=== PATIENT | female | born 1985 | race African-American/Black ===

== ENCOUNTER → 2024-03-25 13:50 | Outpatient (REF) | payer OTHER, SELFPAY ==
[2024-03-25 10:00] LABS: % Basophils 0.2 % (0-2); % Eosinophils 2.1 % (0-6); % Lymphocytes 34.2 % (20.5-51.1); % Monocytes 9.1 % (1.7-9.3); % Neutrophils 54.4 % (42.2-75.2); Absolute Eosinophils 0.1 10^3/uL (0-0.7); Absolute Lymphocytes 1.7 10^3/uL (1.2-3.4); Absolute Monocytes 0.4 10^3/uL (0.1-0.6); Absolute Neutrophils 2.6 10^3/uL (1.4-6.5); Hematocrit 31.4 % (37.0-47.0); Hemoglobin 10.4 g/dL (12.0-16.0); Mean Corp Hgb Conc. 33.1 g/dL (33.0-37.0); Mean Corpuscular Volume 63.4 fL (81.0-99.0); Nucleated Red Blood Cells % 0 %; Platelet Count 266 10^3/uL (130-400); Red Blood Cell Count 4.95 10^6/uL (4.20-5.40); Red Cell Dist. Width 14.8 % (11.5-14.5); White Blood Cell Count 4.9 10^3/uL (4.8-10.8)
== END ==
LOC: OIDL 13:50
PROVIDERS: ATTENDING PHYSICIAN Nurse Practitioner Primary Care
DX: D50.0 Iron deficiency anemia secondary to blood loss (chronic) (principal)
CPT/HCPCS: 85025

== ENCOUNTER 2024-09-06 15:25 | Emergency (ER) | payer OTHER, SELFPAY ==
[2024-09-06 15:38] VITALS: BP 125/72
[2024-09-06 16:09] LABS: % Basophils 0.2 % (0-2); % Immature Granulocytes 0.2 % (0-0.5); % Lymphocytes 31.5 % (20.5-51.1); % Monocytes 6.7 % (1.7-9.3); % Neutrophils 59.4 % (42.2-75.2); Absolute Eosinophils 0.1 10^3/uL (0-0.7); Absolute Lymphocytes 1.9 10^3/uL (1.2-3.4); Absolute Monocytes 0.4 10^3/uL (0.1-0.6); Absolute Neutrophils 3.5 10^3/uL (1.4-6.5); Hematocrit 29.8 % (37.0-47.0); Mean Corp Hgb Conc. 33.6 g/dL (33.0-37.0); Mean Corpuscular Hgb 20.6 pg (27.0-31.0); Mean Corpuscular Volume 61.4 fL (81.0-99.0); Nucleated Red Blood Cells % 0 %; Platelet Count 279 10^3/uL (130-400); Red Blood Cell Count 4.85 10^6/uL (4.20-5.40); Red Cell Dist. Width 15.9 % (11.5-14.5); White Blood Cell Count 5.9 10^3/uL (4.8-10.8)
[2024-09-06 16:19] LABS: ALT (SGPT) 20 U/L (0-35); AST (SGOT) 24 U/L (14-36); Albumin 3.8 g/dl (3.5-5.0); Alkaline Phosphatase 62 U/L (38-126); Blood Urea Nitrogen 7 mg/dl (7-17); Calcium 8.8 mg/dl (8.4-10.2); Carbon Dioxide 24 mmol/L (22-30); Chloride 105 mmol/L (98-107); Glucose 200 mg/dl (70-99); HCG, Serum Qualitative Screen Negative; Potassium 4.6 mmol/L (3.5-5.1); Sodium 138 mmol/L (135-145); Total Bilirubin 0.5 mg/dl (0.2-1.3); Total Protein 6.5 g/dl (6.3-8.2); eGFR > 60.00
[2024-09-06 16:29] LABS: COVID-19 Antigen Negative (Negative)
[2024-09-06 17:41] VITALS: BMI 29.6
--- NOTE | 2024-09-06 17:42 | EDRN ---
Pt states that she has had a headache since March and saw her neurologist and was placed on sumatriptin. Pt arrives for a headache for 4 days w/some congestion and nausea and sore throat. Pt has pain across her forehead. Pt states her glucose
yesterday was 310 and today 145 but usually runs 65. Pain in her head 5/10 and throat 3/10. Pt is sensitive to light and sound.
[2024-09-06 17:45] VITALS: BP 106/63
--- NOTE | 2024-09-06 17:50 | EDRN ---
Pt OOB to BR.
--- NOTE | 2024-09-06 18:04 | ED.GENMED ---
History of Present Illness
General
Chief Complaint: Headache
Source: patient
Exam Limitations: none
Time Seen by Provider: 09/06/24 17:56
Nursing documentation reviewed up to this point in time: agreed with
History of Present Illness
History of Present Illness:
39-year-old female with history of NIDDM, seizure disorder, migraines followed by [facility], states she is having one of her typical migraines they do not usually last this long, this is her third day of her migraine. She took sumatriptan
earlier today with no relief. She has had nausea and vomiting. She denies change in vision, denies any recent head injury.
Past History
Past History
ED Past Medical History: NIDDM and Other (Migraines)
ED Past Surgical History: Appendectomy, Gynecological and Other (gastric bypass)
Social History
Tobacco: Non-smoker
Alcohol: None
Drug: None
Personal:
Living: with family
Employment: Employed (Home health care)
Family History
Family History: Negative Early CAD or Sudden
Review of Systems
Review of Systems
Allergies reviewed?: Yes
All Other Systems: ROS reviewed and negative except as documented in HPI and ROS
Constitutional: Denies fever
Respiratory: Denies trouble breathing
Cardiac: Denies chest pain
ABD/GI: Reports nausea and vomiting; Denies abdominal pain or diarrhea
: Denies dysuria, frequency or difficulty voiding
Musculoskeletal: Reports no symptoms
Skin: Reports no symptoms
Neurological: Reports headache; Denies dizzy, weakness or numbness
Phy Exam
Physical Exam
Physical Exam:
GENERAL: No acute distress. A&Ox3.
CONSTITUTIONAL: Afebrile.
EYES: PERRL, conjunctivae normal, + photophobia,
Neck: Supple
ENMT: moist mucus membranes, Pharynx nl
RESPIRATORY: Regular respirations, nonlabored, lungs clear.
CARDIOVASCULAR: Regular rate and rhythm, no murmurs, no rubs.
GI: Soft, nontender, normal BS
MUSCULOSKELETAL: Moves with ease. Well perfused.
SKIN: Warm, dry, normal
PSYCH: Normal mood and affect. Well kept, interactive and appropriate
NEUROLOGIC: Awake, alert and oriented. No focal neurological deficits
Course
Orders/Labs/Results
Orders:
Orders
09/06/24 15:42
Test Result ONCE
09/06/24 15:46
COVID-19 Antigen Urgent
Source: Nasal Swab
Complete Blood Count/With Diff Urgent
Comprehensive Metabolic Panel Urgent
HCG, Serum Qualitative Screen Urgent
09/06/24 18:03
Diphenhydramine [Benadryl] 50 mg IV NOW STA
Ketorolac [Toradol] 15 mg IV NOW STA
Prochlorperazine [Compazine] 10 mg IV NOW STA
09/06/24 18:05
Test Result ONCE
Abnormal Lab Results
09/06/24
15:46
Hgb 10.0 L g/dL
(12.0-16.0)
Hct 29.8 L %
(37.0-47.0)
MCV 61.4 L fL
(81.0-99.0)
MCH 20.6 L pg
(27.0-31.0)
RDW 15.9 H %
(11.5-14.5)
Glucose 200 H mg/dl
(70-99)
09/06/24 15:46
09/06/24 15:46
Vital Signs
Initial and Last Documented VS:
Initial Vital Signs
Temp Pulse BP Pulse Ox
98.2 F 72 125/72 100
09/06/24 15:38 09/06/24 15:38 09/06/24 15:38 09/06/24 15:38
Last Documented Vital Signs
Temp Pulse Resp BP Pulse Ox
98.2 F 52 14 113/72 100
09/06/24 15:38 09/06/24 19:45 09/06/24 19:45 09/06/24 21:00 09/06/24 19:45
MDM/Problems Addressed
Differential Diagnosis Includes:
migraine
MDM/Problems Addressed:
39-year-old female with history of NIDDM, seizure disorder, migraines followed by [facility], states she is having one of her typical migraines they do not usually last this long, this is her third day of her migraine. She took sumatriptan
earlier today with no relief. She has had nausea and vomiting. She denies change in vision, denies any recent head injury.
Neuro exam unremarkable
CBC with no clinically significant abnormality patient's baseline anemia
CMP unremarkable
hCG negative
COVID-negative
9:00 PM
In to reevaluate patient
She is groggy but states her headache is 'better.'
Will encourage fluids and activity
9:30 PM:
Patient states she is feeling 'much better.' She is on her cell phone. She has been out of bed and ambulating. She is drinking sabrina yuriy.
Stable for discharge
*Critical Care Note
Total Time (30-74mins, 75-104mins- exclusive of procedures): Not Applicable
ED Attending Note
-
Portions of this chart may have been created with voice recognition software.� Occasional wrong word or��sound alike� substitutions may have occurred due to the inherent limitations of voice recognition software.
Discharge Plan
Departure
Patient Disposition: Home (Routine Discharge)
Date of Disposition: 09/06/24
Time of Disposition: 21:20
Patient with high blood pressure during this ER visit?: No
Condition: Good
Discharge Problem:
Migraine
Instructions: Migraines (DC)
Prescriptions:
No Action
metformin 500 MG tablet
500 mg PO BID
Patient Comments:
unsure of dosage
glipizide [Glipizide XL] 5 MG tablet extended release 24hr
ferrous sulfate [Feosol] 325 MG tablet
325 mg PO DAILY
topiramate 100 MG tablet
100 mg PO BID
Patient Comments:
unsure of dosage
sitagliptin phosphate [Januvia] 50 MG tablet
50 mg PO DAILY
Patient Comments:
unsure of dosage
vit no.[id number] [ One Daily] 1 EACH tablet
1 ea PO DAILY
Referrals:
PO QUIGLEY DO [Family Provider] - As needed
Activity Restrictions/Additional Instructions:
As we discussed, your COVID test is negative.
Your blood work is consistent with your chronic anemia, your blood sugar was 200.
Interventions
Interventions:
*Risk Screen - Suicide Last Done: 09/06/24 15:41
*General Assessment Last Done: 09/06/24 17:47
*Neglect/Abuse Screening Last Done: 09/06/24 15:41
ED- Fall Risk Assessment Last Done: 09/06/24 17:48
*ED COVID-19 Vaccine History Last Done: 09/06/24 17:47
*Nursing Disposition Last Done: 09/06/24 21:28
ED- Neurological Assessment Last Done: 09/06/24 17:48
Discharge Date and Time
Discharge Date/Time: 09/06/24 21:35
Print Language: BELARUSIAN
[2024-09-06 18:40] VITALS: BP 119/87
[2024-09-06] MEDS: BENADRYL 50 MG IV (18:45)
[2024-09-06] MEDS: TORADOL 15 MG IV (18:45)
[2024-09-06] MEDS: COMPAZINE 10 MG IV (18:47)
[2024-09-06 19:45] VITALS: BP 111/69
[2024-09-06 21:00] VITALS: BP 113/72
== END 2024-09-06 21:35 | disposition home or self-care (01) ==
LOC: EMR 15:25
PROVIDERS: Emergency Medicine; EMERGENCY PHYSICIAN Emergency Medicine; FAMILY PHYSICIAN Student in an Organized Health Care Education/Training Program
DX: G43.909 Migraine, unspecified, not intractable, without status migrainosus (principal); E11.9 Type 2 diabetes mellitus without complications; G40.909 Epilepsy, unspecified, not intractable, without status epilepticus; Z90.49 Acquired absence of other specified parts of digestive tract; Z98.84 Bariatric surgery status
CPT/HCPCS: 99283; 80053; 84703; 85025; 87811

== ENCOUNTER 2024-10-05 22:35 | Emergency (ER) | payer OTHER, SELFPAY ==
[2024-10-05 22:42] VITALS: BP 128/73
--- NOTE | 2024-10-05 23:21 | ED.GENMED ---
History of Present Illness
General
Chief Complaint: Eye Problems
Source: patient
Exam Limitations: none
Time Seen by Provider: 10/05/24 22:59
History of Present Illness
History of Present Illness:
This is a 39-year-old woman with history of [id number] diabetes, migraine headaches, seizure disorder, anemia who presents with right eye redness and irritation that began mildly last night. This morning she awoke with mild crusting to
her right eye. She wears extended wear contacts, generally wears them for a month and then replaces. She did take her right eye contact out today and has not replaced. She continues with right eye irritation, redness, mild discomfort, mild
foreign body sensation but no difficulty with vision, no headache, no blurred vision, no significant tearing, no photophobia. No history of similar episodes in the past.
No close contacts with similar symptoms.
Past History
Past History
ED Past Medical History: NIDDM, Seizures, Psychiatric and Other (Migraines)
ED Past Surgical History: Appendectomy, , Gynecological and Other (gastric bypass)
Social History
Tobacco: Non-smoker
Alcohol: None
Drug: None
Personal:
Living: with family
Employment: Employed (Home health care)
Family History
Family History: Negative Early CAD or Sudden
Phy Exam
Physical Exam
Physical Exam:
GENERAL: 39-year-old woman appears her stated age, bright and alert, pleasant, appears in no acute distress.
EYE: pupils equal and reactive. Extraocular muscles intact. There is mild conjunctival injection right eye without chemosis. No tearing. Right eye examined with fluorescein stain and Lo lamp. There is is a minute abrasion inferior edge of
the right cornea. No evidence of ulceration. No foreign body. Anterior chamber clear. Visual acuity grossly intact. Anicteric
NECK: Supple, nontender, no meningismus, no significant adenopathy.
ENT: oral mucosa is moist. No rhinorrhea.
LUNGS: Respirations are easy and nonlabored.
NEUROLOGICAL: Alert and oriented x3, no focal neuro deficits. Gait is trevizo and steady.
SKIN: Warm and dry, normal color, skin intact. No rash.
MUSCULOSKELETAL: Full range of motion. No peripheral edema.
PSYCH: Normal and appropriate interaction.
Course
Orders/Labs/Results
Orders:
Orders
10/05/24 23:19
Gentamicin [Genoptic 0.3% Eye Drops] See Dose Instructions OPHTH NOW STA
Vital Signs
Initial and Last Documented VS:
Initial Vital Signs
Temp Pulse Resp BP Pulse Ox
98 F 63 16 128/73 100
10/05/24 22:42 10/05/24 22:42 10/05/24 22:42 10/05/24 22:42 10/05/24 22:42
Last Documented Vital Signs
Temp Pulse Resp BP Pulse Ox
98 F 63 16 128/73 100
10/05/24 22:42 10/05/24 22:42 10/05/24 22:42 10/05/24 22:42 10/05/24 22:42
MDM/Problems Addressed
Differential Diagnosis Includes:
Concern for focal mild conjunctivitis right eye and exam notable for a tiny corneal abrasion inferior aspect of the right eye. There is no evidence of ulceration. No foreign body.
Will treat small corneal abrasion as well as mild conjunctival injection/conjunctivitis with a course of gentamicin ophthalmic drops.
Recommend she avoid contact use in right eye until eye is healed and gentamicin drops therapy has been completed.
Recommend follow-up with ophthalmology for recheck; prompt follow-up if no improvement after 2 to 3 days.
Patient is up-to-date with Tdap.
Chronic conditions affecting care: DM
*Pulse Oximetry
Patient hypoxic: no
*Critical Care Note
Total Time (30-74mins, 75-104mins- exclusive of procedures): Not Applicable
ED Attending Note
-
Portions of this chart may have been created with voice recognition software.� Occasional wrong word or��sound alike� substitutions may have occurred due to the inherent limitations of voice recognition software.
Discharge Plan
Departure
Patient Disposition: Home (Routine Discharge)
Date of Disposition: 10/05/24
Time of Disposition: 23:21
Patient with high blood pressure during this ER visit?: No
Condition: Good
Discharge Problem:
Corneal abrasion of right eye due to contact lens
Instructions: Corneal Abrasion (DC), How to Use Eye Drops
Prescriptions:
New
gentamicin 0.3 % drops
1 drp ophthalmic (eye) QID Qty: 5 0RF
No Action
metformin 500 MG tablet
500 mg PO BID
Patient Comments:
unsure of dosage
glipizide [Glipizide XL] 5 MG tablet extended release 24hr
ferrous sulfate [Feosol] 325 MG tablet
325 mg PO DAILY
topiramate 100 MG tablet
100 mg PO BID
Patient Comments:
unsure of dosage
sitagliptin phosphate [Januvia] 50 MG tablet
50 mg PO DAILY
Patient Comments:
unsure of dosage
vit no.[id number] [ One Daily] 1 EACH tablet
1 ea PO DAILY
Referrals:
Dwight Anderson DO [Family Provider] -
Cierra Saab MD [Active] - Call in 1-3 days for appt
Activity Restrictions/Additional Instructions:
Use gentamicin eyedrops, 1 to 2 drops in the right eye 4 times a day over the next 5 to 7 days or until eye feels completely better, then discontinue 1 day after that.
Refrain from putting contact in right eye until he is healed with no further irritation or redness. Then you can resume contact use.
If no improvement or worsening over the next 2 to 3 days, make an appointment with air bag buffer for further evaluation.
Interventions
Interventions:
*Risk Screen - Suicide Last Done: 10/05/24 22:42
*Neglect/Abuse Screening Last Done: 10/05/24 22:42
Discharge Date and Time
Print Language: SAMI
[2024-10-05] MEDS: GENOPTIC 0.3% EYE DROPS 1 DROP OPHTH (23:29)
== END 2024-10-05 23:35 | disposition home or self-care (01) ==
LOC: EMR 22:35
PROVIDERS: EMERGENCY PHYSICIAN Emergency Medicine; FAMILY PHYSICIAN Family Medicine
DX: H18.821 Corneal disorder due to contact lens, right eye (principal); E11.9 Type 2 diabetes mellitus without complications; G40.909 Epilepsy, unspecified, not intractable, without status epilepticus; D64.9 Anemia, unspecified; Z90.49 Acquired absence of other specified parts of digestive tract; Z98.84 Bariatric surgery status
CPT/HCPCS: 99282

== ENCOUNTER 2024-10-09 13:53 | Emergency (ER) | payer OTHER, SELFPAY ==
[2024-10-09 13:55] VITALS: BP 134/103
[2024-10-09 14:02] VITALS: BP 134/103
[2024-10-09 14:11] VITALS: BP 134/103
[2024-10-09 14:29] LABS: % Basophils 0.2 % (0-2); % Eosinophils 1.9 % (0-6); % Immature Granulocytes 0.4 % (0-0.5); % Lymphocytes 24.1 % (20.5-51.1); % Monocytes 11.5 % (1.7-9.3); % Neutrophils 61.9 % (42.2-75.2); Absolute Eosinophils 0.1 10^3/uL (0-0.7); Absolute Lymphocytes 1.3 10^3/uL (1.2-3.4); Absolute Monocytes 0.6 10^3/uL (0.1-0.6); Absolute Neutrophils 3.3 10^3/uL (1.4-6.5); Hemoglobin 10.4 g/dL (12.0-16.0); Mean Corp Hgb Conc. 31.5 g/dL (33.0-37.0); Mean Corpuscular Volume 63.6 fL (81.0-99.0); Nucleated Red Blood Cells % 0 %; Platelet Count 254 10^3/uL (130-400); Red Blood Cell Count 5.19 10^6/uL (4.20-5.40); Red Cell Dist. Width 21.3 % (11.5-14.5); White Blood Cell Count 5.3 10^3/uL (4.8-10.8)
--- NOTE | 2024-10-09 14:35 | ED.GENMED ---
History of Present Illness
General
Chief Complaint: Seizure
Source: patient and ambulance crew
Exam Limitations: none
Time Seen by Provider: 10/09/24 14:16
Nursing documentation reviewed up to this point in time: agreed with
History of Present Illness
History of Present Illness:
Patient with history of migraine headache on Topamax and seizure disorder on Lamictal and Keppra, presents to ED secondary to possible seizure episode, while visiting her boyfriend. Per boyfriend at bedside, when she first presented to his house,
she was at her baseline mental status. While there was sitting down having lunch, patient asked him to call 911 and started to point to her throat. Patient was explaining to her boyfriend that she may be having allergic reaction. Patient called
911 and had laid her down on the floor, when paramedics arrived. Patient, although awake, was less responsive when medics arrived. Patient had 1 vomiting episode while being placed on the stretcher. Boyfriend states that patient usually has a
vomiting episode, after she has seizure episode. Patient denies tongue biting. Denies urinary or bowel incontinence. Patient is complaining of headache, which she has had for the past 5 days. In addition, secondary to her frequent seizures, her
neurologist at [facility] had just increased her Lamictal to 150 mg twice daily, from 200 mg daily. Patient had not taken her a.m. lamictal medication yet, as she just picked up her new medication.
Past History
Past History
ED Past Medical History: NIDDM, Seizures, Psychiatric and Other (Migraines)
ED Past Surgical History: Appendectomy, , Gynecological and Other (gastric bypass)
Social History
Tobacco: Non-smoker
Alcohol: None
Drug: None
Personal:
Living: with family
Employment: Employed (Home health care)
Family History
Family History: Negative Early CAD or Sudden
Review of Systems
Review of Systems
Allergies reviewed?: Yes
All Other Systems: ROS reviewed and negative except as documented in HPI and ROS
Constitutional: Reports no symptoms
EENT: Reports no symptoms
Respiratory: Reports no symptoms
Cardiac: Reports no symptoms
ABD/GI: Reports no symptoms
: Reports no symptoms
Musculoskeletal: Reports no symptoms
Skin: Reports no symptoms
Neurological: Reports other (Possible seizure)
Phy Exam
Physical Exam
Physical Exam:
Physical Exam
General: no apparent distress, not acutely ill. afebrile.
Head: nc/at. eomi
Neck: supple. normal range of motion.
Heart: s1/s2 regular rate and rhythm, no murmur. equal radial pulses.
Lungs: no acute respiratory distress. clear bilaterally
Abdomen: normal bowel sounds. not tender.
Neuro: alert and oriented. no focal neurological deficits. normal speech
Skin: no rash
Psychiatric: well kept. interactive and cooperative
Extremities: no edema. no calf tenderness.
Course
Orders/Labs/Results
Orders:
Orders
10/09/24 14:17
CMP [Comprehensive Metabolic Panel] Urgent
Complete Blood Count/With Diff Urgent
10/09/24 14:34
Lamotrigine [Lamictal] 150 mg PO NOW STA
10/09/24 14:36
Acetaminophen [Tylenol] 1,000 mg PO NOW STA
Abnormal Lab Results
10/09/24
14:17
Hgb 10.4 L g/dL
(12.0-16.0)
Hct 33.0 L %
(37.0-47.0)
MCV 63.6 L fL
(81.0-99.0)
MCH 20.0 L pg
(27.0-31.0)
MCHC 31.5 L g/dL
(33.0-37.0)
RDW 21.3 H %
(11.5-14.5)
Monocytes % 11.5 H %
(1.7-9.3)
Glucose 129 H mg/dl
(70-99)
10/09/24 14:17
10/09/24 14:17
Vital Signs
Initial and Last Documented VS:
Initial Vital Signs
Temp Pulse Resp BP Pulse Ox
98.5 F 78 18 134/103 100
10/09/24 13:55 10/09/24 13:55 10/09/24 13:55 10/09/24 13:55 10/09/24 13:55
Last Documented Vital Signs
Temp Pulse Resp BP Pulse Ox
98.7 F 71 18 133/84 99
10/09/24 14:11 10/09/24 16:51 10/09/24 16:51 10/09/24 16:51 10/09/24 16:51
MDM/Problems Addressed
MDM/Problems Addressed:
Patient remains asymptomatic during extended course of observation ED. Patient provided with her new Lamictal dose medication. Patient will be discharged home in stable condition, to the care of her boyfriend, with recommendation to follow-up with
her neurologist for an outpatient evaluation. In addition, with concern for patient not eating on a regular basis or difficulty with eating, advised GI follow-up as well.
*Critical Care Note
Total Time (30-74mins, 75-104mins- exclusive of procedures): Not Applicable
ED Attending Note
-
Portions of this chart may have been created with voice recognition software.� Occasional wrong word or��sound alike� substitutions may have occurred due to the inherent limitations of voice recognition software.
Discharge Plan
Departure
Patient Disposition: Home (Routine Discharge)
Date of Disposition: 10/09/24
Time of Disposition: 16:43
Patient with high blood pressure during this ER visit?: No
Condition: Good
Discharge Problem:
Seizure
Instructions: Seizures, Adult (DC)
Prescriptions:
No Action
metformin 500 MG tablet
500 mg PO BID
Patient Comments:
unsure of dosage
glipizide [Glipizide XL] 5 MG tablet extended release 24hr
ferrous sulfate [Feosol] 325 MG tablet
325 mg PO DAILY
topiramate 100 MG tablet
100 mg PO BID
Patient Comments:
unsure of dosage
sitagliptin phosphate [Januvia] 50 MG tablet
50 mg PO DAILY
Patient Comments:
unsure of dosage
vit no.[id number] [ One Daily] 1 EACH tablet
1 ea PO DAILY
gentamicin 0.3 % drops
1 drp ophthalmic (eye) QID Qty: 5 0RF
Referrals:
Dwight Anderson, DO [Family Provider] -
Activity Restrictions/Additional Instructions:
As discussed, please follow-up with your neurologist as well as GI physician for further evaluation and treatment.
Interventions
Interventions:
*Risk Screen - Suicide Last Done: 10/09/24 13:55
*General Assessment Last Done: 10/09/24 13:55
*Neglect/Abuse Screening Last Done: 10/09/24 13:55
ED- Fall Risk Assessment Last Done: 10/09/24 16:52
*ED COVID-19 Vaccine History Last Done: 10/09/24 13:55
*Nursing Disposition Last Done: 10/09/24 16:52
ED- Cardiac Assessment Last Done: 10/09/24 13:55
ED- Neurological Assessment Last Done: 10/09/24 13:55
ED- Pulmonary Assessment Last Done: 10/09/24 13:55
Discharge Date and Time
Discharge Date/Time: 10/09/24 16:53
Print Language: CHINESE
[2024-10-09 14:40] LABS: ALT (SGPT) 20 U/L (0-35); AST (SGOT) 24 U/L (14-36); Albumin 4.1 g/dl (3.5-5.0); Alkaline Phosphatase 56 U/L (38-126); Blood Urea Nitrogen 8 mg/dl (7-17); Calcium 8.8 mg/dl (8.4-10.2); Carbon Dioxide 25 mmol/L (22-30); Chloride 105 mmol/L (98-107); Glucose 129 mg/dl (70-99); Potassium 3.8 mmol/L (3.5-5.1); Sodium 140 mmol/L (135-145); Total Bilirubin 0.7 mg/dl (0.2-1.3); Total Protein 6.9 g/dl (6.3-8.2); eGFR > 60.00
[2024-10-09] MEDS: TYLENOL 1000 MG PO (14:48)
[2024-10-09] MEDS: LAMICTAL 150 MG PO (14:48)
[2024-10-09 15:00] VITALS: BP 96/76
[2024-10-09 16:51] VITALS: BP 133/84
== END 2024-10-09 16:53 | disposition home or self-care (01) ==
LOC: EMR 13:53
PROVIDERS: EMERGENCY PHYSICIAN Emergency Medicine; FAMILY PHYSICIAN Family Medicine
DX: G40.909 Epilepsy, unspecified, not intractable, without status epilepticus (principal); R51.9 Headache, unspecified; E11.9 Type 2 diabetes mellitus without complications; Z90.49 Acquired absence of other specified parts of digestive tract; Z98.84 Bariatric surgery status; Z79.899 Other long term (current) drug therapy
CPT/HCPCS: 99283; 80053; 85025

== ENCOUNTER 2024-12-15 22:24 | Emergency (ER) | payer OTHER, SELFPAY ==
[2024-12-15 22:27] VITALS: BP 104/68
[2024-12-15 23:12] VITALS: BMI 31.1
--- NOTE | 2024-12-16 00:04 | ED.GENMED ---
History of Present Illness
General
Chief Complaint: Musculo-Skeletal Complaint
Source: patient
Exam Limitations: none
Time Seen by Provider: 12/15/24 23:33
Nursing documentation reviewed up to this point in time: agreed with
History of Present Illness
History of Present Illness:
39 y/o F
gastric bypass
NIDDM
seizures
here with L 4th toe and distal food pain after 'jamming' it against a wall on 12/14
she has had pain, swelling, difficulty weight beraing since
no meds taken for pain
no ankle pain
Past History
Past History
ED Past Medical History: NIDDM, Seizures, Psychiatric and Other (Migraines)
ED Past Surgical History: Appendectomy, , Gynecological and Other (gastric bypass)
Social History
Tobacco: Non-smoker
Alcohol: None
Drug: None
Personal:
Living: with family
Employment: Employed (Home health care)
Family History
Family History: Negative Early CAD or Sudden
Review of Systems
Review of Systems
Allergies reviewed?: Yes
All Other Systems: Not applicable
Phy Exam
Physical Exam
Physical Exam:
GENERAL: Alert , in no apparent distress, comfortable at rest
HEAD: NCAT
CV: 2+ DP PULSES B/L
NEUROLOGICAL: Alert and oriented, no focal neuro deficits, , 5/5 strength, sensation intact, ambulation slight limp right leg
SKIN: Warm and dry, some slight warmth/redness/bruising to dorsum of L foot distally and STS of L 4th toe
MUSCULOSKELETAL: mild STS of L distal foot and 4th toe
some mild ecchymosis/warmth
normal pulse
painful liimited ROM of the 4th toe
ankle nontedner,
PSYCH: Normal and appropriate interaction.
Course
Orders/Labs/Results
Orders:
Orders
12/15/24 22:26
CR Foot - Left Min 3 Views Urgent
Reason For Exam: pain to left 4th toe
12/16/24 00:12
Ibuprofen [Motrin] 600 mg PO NOW STA
Vital Signs
Initial and Last Documented VS:
Initial Vital Signs
Temp Pulse Resp BP Pulse Ox
36.7 C 66 18 104/68 98
12/15/24 22:27 12/15/24 22:27 12/15/24 22:27 12/15/24 22:27 12/15/24 22:27
Last Documented Vital Signs
Temp Pulse Resp BP Pulse Ox
36.7 C 66 18 104/68 98
12/15/24 22:27 12/15/24 22:27 12/15/24 22:27 12/15/24 22:27 12/15/24 22:27
MDM/Problems Addressed
Differential Diagnosis Includes:
toe fracture, contusion, stprain
MDM/Problems Addressed:
39 y/o Fgastric bypass
DM
here iwth L 4th toe pain and foot pain/swelling after banging against a wall las tnight
swollen 4th digit, mild STS of the foot
normal N/V exam
xray indep reviewed
4th prox phaolax fx
evidence of old mall fx, no ankle tnedneresnss
sharon tape, hard sole shoe crtuches
*Critical Care Note
Total Time (30-74mins, 75-104mins- exclusive of procedures): Not Applicable
ED Attending Note
-
Portions of this chart may have been created with voice recognition software.� Occasional wrong word or��sound alike� substitutions may have occurred due to the inherent limitations of voice recognition software.
Discharge Plan
Departure
Patient Disposition: Home (Routine Discharge)
Date of Disposition: 12/16/24
Time of Disposition: 00:10
Patient with high blood pressure during this ER visit?: No
Covid-19: Not Applicable
Discharge Problem:
Closed fracture of fourth toe of left foot
Instructions: Toe Fracture ED
Prescriptions:
No Action
metformin 500 MG tablet
500 mg PO BID
Patient Comments:
unsure of dosage
glipizide [Glipizide XL] 5 MG tablet extended release 24hr
ferrous sulfate [Feosol] 325 MG tablet
325 mg PO DAILY
topiramate 100 MG tablet
100 mg PO BID
Patient Comments:
unsure of dosage
sitagliptin phosphate [Januvia] 50 MG tablet
50 mg PO DAILY
Patient Comments:
unsure of dosage
vit no.[id number] [ One Daily] 1 EACH tablet
1 ea PO DAILY
gentamicin 0.3 % drops
1 drp ophthalmic (eye) QID Qty: 5 0RF
Referrals:
Dwight Anderson, DO [Family Provider] -
Alen Traore DPM [Active] - Follow up in 5-7 days
Stand Alone Forms: Return to Work
Activity Restrictions/Additional Instructions:
You broke the proximal phalanx of the fourth toe on the left foot. You should sharon tape your toe to the third toe, be sure to put it piece of padding or gauze between your toes before you take them together. Use the hard soled shoe to help you
walk. Use crutches as needed
Ice off-and-on, ibuprofen or Tylenol for pain. Follow-up with the arranging funeral director. Usually toe fractures heal within a week or 2. If you are having persistent symptoms be sure to follow-up. You should also make sure to always have a foot exam
annually because of your diabetes.
Interventions
Interventions:
*Risk Screen - Suicide Last Done: 12/15/24 22:27
*General Assessment Last Done: 12/15/24 22:27
*Neglect/Abuse Screening Last Done: 12/15/24 22:27
*ED COVID-19 Vaccine History Last Done: 12/15/24 22:31
*Nursing Disposition Last Done: 12/16/24 01:02
ED-Musculoskeletal Assessment Last Done: 12/15/24 23:12
Discharge Date and Time
Discharge Date/Time: 12/16/24 01:03
Print Language: CITIZEN [place]
[2024-12-16] MEDS: MOTRIN 600 MG PO (00:19)
== END 2024-12-16 01:03 | disposition home or self-care (01) ==
LOC: EMR 22:24
PROVIDERS: EMERGENCY PHYSICIAN Emergency Medicine; FAMILY PHYSICIAN Family Medicine
DX: S92.515A Nondisplaced fracture of proximal phalanx of left lesser toe(s), initial encounter for closed fracture (principal); S90.32XA Contusion of left foot, initial encounter; S90.122A Contusion of left lesser toe(s) without damage to nail, initial encounter; W22.09XA Striking against other stationary object, initial encounter; E11.9 Type 2 diabetes mellitus without complications; R56.9 Unspecified convulsions; G43.909 Migraine, unspecified, not intractable, without status migrainosus; F41.9 Anxiety disorder, unspecified; F32.A Depression, unspecified; F43.10 Post-traumatic stress disorder, unspecified; Z98.84 Bariatric surgery status; Z88.8 Allergy status to other drugs, medicaments and biological substances; Z91.010 Allergy to peanuts
CPT/HCPCS: 99283; 73630

== ENCOUNTER 2024-12-23 12:47 | Emergency (ER) | payer OTHER, SELFPAY ==
[2024-12-23 13:01] VITALS: BP 170/100
[2024-12-23 13:25] LABS: % Basophils 0.2 % (0-2); % Eosinophils 0.9 % (0-6); % Immature Granulocytes 0.2 % (0-0.5); % Lymphocytes 37.1 % (20.5-51.1); % Monocytes 6.2 % (1.7-9.3); % Neutrophils 55.4 % (42.2-75.2); Absolute Eosinophils 0.1 10^3/uL (0-0.7); Absolute Lymphocytes 2.4 10^3/uL (1.2-3.4); Absolute Monocytes 0.4 10^3/uL (0.1-0.6); Absolute Neutrophils 3.5 10^3/uL (1.4-6.5); Hematocrit 37.9 % (37.0-47.0); Hemoglobin 12.7 g/dL (12.0-16.0); Mean Corp Hgb Conc. 33.5 g/dL (33.0-37.0); Mean Corpuscular Volume 65.6 fL (81.0-99.0); Nucleated Red Blood Cells % 0 %; Platelet Count 232 10^3/uL (130-400); Red Blood Cell Count 5.78 10^6/uL (4.20-5.40); Red Cell Dist. Width 18.1 % (11.5-14.5); White Blood Cell Count 6.3 10^3/uL (4.8-10.8)
[2024-12-23 13:38] LABS: HCG, Serum Qualitative Screen Negative
[2024-12-23 13:39] LABS: ALT (SGPT) 20 U/L (0-35); AST (SGOT) 21 U/L (14-36); Albumin 4.5 g/dl (3.5-5.0); Alkaline Phosphatase 58 U/L (38-126); Blood Urea Nitrogen 9 mg/dl (7-17); Calcium 9.5 mg/dl (8.4-10.2); Carbon Dioxide 23 mmol/L (22-30); Chloride 104 mmol/L (98-107); Glucose 78 mg/dl (70-99); Potassium 4.5 mmol/L (3.5-5.1); Sodium 136 mmol/L (135-145); Total Bilirubin 1.3 mg/dl (0.2-1.3); eGFR > 60.00
--- NOTE | 2024-12-23 15:35 | ED.GENMED ---
History of Present Illness
<ARMIDA Patel - Last Filed: 12/23/24 17:08>
General
Chief Complaint: Vaginal Bleeding
Source: patient
Exam Limitations: none
Time Seen by Provider: 12/23/24 15:34
Nursing documentation reviewed up to this point in time: agreed with
History of Present Illness
History of Present Illness:
Patient is a 39-year-old female who presents to the ER for vaginal bleeding. Patient has not had a period 2 months but did not think this was abnormal and took a test 3 weeks ago which was positive. Patient started spotting and had
heavier vaginal bleeding 3 days ago. She does report that she had clots. Bleeding has improved and is not as heavy but she does have lower abdominal pain worse in the right lower quadrant.
SHe does have hx of ectopic in the past.
She denies any dizziness lightheadedness.
Past History
<ARMIDA Patel - Last Filed: 12/23/24 17:08>
Past History
ED Past Medical History: NIDDM, Seizures, Psychiatric and Other (Migraines)
ED Past Surgical History: Appendectomy, , Gynecological and Other (gastric bypass)
Social History
Tobacco: Non-smoker
Alcohol: None
Drug: None
Personal:
Living: with family
Employment: Employed (Home health care)
Family History
Family History: Negative Early CAD or Sudden
Review of Systems
<ARMIDA Patel - Last Filed: 12/23/24 17:08>
Review of Systems
Allergies reviewed?: Yes
All Other Systems: ROS reviewed and negative except as documented in HPI and ROS
Constitutional: Reports no symptoms
ABD/GI: Reports abdominal pain; Denies nausea, vomiting or diarrhea
: Reports other (vaginal bleeding )
Musculoskeletal: Reports no symptoms
Skin: Reports no symptoms
Psychiatric: Reports no symptoms
Phy Exam
<ARMIDA Patel - Last Filed: 12/23/24 17:08>
General Physical Exam
General Presentation: no apparent distress
General age: appears stated age
General Skin: warm and dry
General Habitus: normal
General Mental: alert
General Hydration: appears well hydrated
Gastrointestinal Exam
Gastrointestinal Exam: soft and other (mildly tender rlq )
Musculoskeletal Exam
Musculoskeletal Exam: full ROM
Skin Exam
Skin Exam: normal color and warm/dry
Psychiatric Exam
Psychiatric Exam: normal mood/affect
Course
<ARMIDA Patel - Last Filed: 12/23/24 17:08>
Orders/Labs/Results
Orders:
Orders
12/23/24 13:05
Test Result ONCE
12/23/24 13:10
Type+Screen Urgent
Complete Blood Count/With Diff Urgent
Comprehensive Metabolic Panel Urgent
HCG, Serum Qualitative Screen Urgent
Comment: Notify provider if positive test present
12/23/24 16:14
US Pelvis Only (non-obstetric) Urgent
Comment:
Reason For Exam: vaginal bleeding recent + home
Abnormal Lab Results
12/23/24
13:10
RBC 5.78 H 10^6/uL
(4.20-5.40)
MCV 65.6 L fL
(81.0-99.0)
MCH 22.0 L pg
(27.0-31.0)
RDW 18.1 H %
(11.5-14.5)
12/23/24 13:10
12/23/24 13:10
Vital Signs
Initial and Last Documented VS:
Initial Vital Signs
Temp Pulse Resp BP Pulse Ox
98.2 F 72 16 170/100 96
12/23/24 13:01 12/23/24 13:01 12/23/24 13:01 12/23/24 13:01 12/23/24 13:01
Last Documented Vital Signs
Temp Pulse Resp BP Pulse Ox
98.2 F 56 18 121/82 99
12/23/24 13:01 12/23/24 15:57 12/23/24 15:57 12/23/24 15:57 12/23/24 15:57
<Fred Diaz MD - Last Filed: 12/23/24 21:01>
Orders/Labs/Results
Orders:
Orders
12/23/24 13:05
Test Result ONCE
12/23/24 13:10
Type+Screen Urgent
Complete Blood Count/With Diff Urgent
Comprehensive Metabolic Panel Urgent
HCG, Serum Qualitative Screen Urgent
Comment: Notify provider if positive test present
12/23/24 16:14
US Pelvis Only (non-obstetric) Urgent
Comment:
Reason For Exam: vaginal bleeding recent + home
Abnormal Lab Results
12/23/24
13:10
RBC 5.78 H 10^6/uL
(4.20-5.40)
MCV 65.6 L fL
(81.0-99.0)
MCH 22.0 L pg
(27.0-31.0)
RDW 18.1 H %
(11.5-14.5)
12/23/24 13:10
12/23/24 13:10
Vital Signs
Initial and Last Documented VS:
Initial Vital Signs
Temp Pulse Resp BP Pulse Ox
98.2 F 72 16 170/100 96
12/23/24 13:01 12/23/24 13:01 12/23/24 13:01 12/23/24 13:01 12/23/24 13:01
Last Documented Vital Signs
Temp Pulse Resp BP Pulse Ox
98.2 F 56 18 121/82 99
12/23/24 13:01 12/23/24 15:57 12/23/24 15:57 12/23/24 15:57 12/23/24 15:57
<ARMIDA Patel - Last Filed: 12/23/24 17:08>
MDM/Problems Addressed
Differential Diagnosis Includes:
Not limited to miscarriage, retained products of conception
MDM/Problems Addressed:
Patient is a 39-year female who took a test which was +3 weeks ago and started vaginal bleeding 3 days ago and presents to the ER for evaluation of vaginal bleeding and pain. She reports bleeding has improved but she still has some lower
abdominal pain and cramping worse on the right lower quadrant. hCG qualitative negative here , likely miscarriage however will check and order ultrasound to rule out retained products.
Patient is stable. Nontachycardic in no acute distress normal white count stable hemoglobin 12.7, O positive
ED Attending Note
<ARMIDA Patel - Last Filed: 12/23/24 17:08>
-
Portions of this chart may have been created with voice recognition software.� Occasional wrong word or��sound alike� substitutions may have occurred due to the inherent limitations of voice recognition software.
<Fred Diaz MD - Last Filed: 12/23/24 21:01>
ED Attending Note
Patient seen and examined by attending physician: Yes
I performed the substantive portion of visit, reviewed & personally made and approve the management plan that is documented in note by myself or JOSE.: Yes
ED Attending Note:
39-year-old female complaining of vaginal bleeding and clotting. Started 3 days ago. Improved some since being in the ER. Some lower abdominal cramping. No fever no discharge. She has 6 children.
On exam patient is nontoxic in no distress. She is in no respiratory distress. Regular rate and rhythm. Warm and dry. Perfusing well. Abdomen is soft and nontender. No rebound or guarding no mass or hernia. She is grossly nonfocal. She is
warm and dry.
Labs are all stable. test is negative. Hemoglobin is stable and actually improved. Patient is O+. Ultrasound shows a small fibroid. No ectopic. No free fluid. Impression suspect completed miscarriage. Nothing to support or be
suspicious of an ectopic. Discharged to follow-up.. Patient given copy of ultrasound report. Aware of uterine fibroid
Discharge Plan
Departure
Patient Disposition: Home (Routine Discharge)
Date of Disposition: 12/23/24
Time of Disposition: 20:58
Patient with high blood pressure during this ER visit?: Yes
Discharge Problem:
Suspect completed miscarriage
Instructions: Miscarriage (DC), BLOOD PRESSURE
Prescriptions:
No Action
metformin 500 MG tablet
500 mg PO BID
Patient Comments:
unsure of dosage
glipizide [Glipizide XL] 5 MG tablet extended release 24hr
ferrous sulfate [Feosol] 325 MG tablet
325 mg PO DAILY
topiramate 100 MG tablet
100 mg PO BID
Patient Comments:
unsure of dosage
sitagliptin phosphate [Januvia] 50 MG tablet
50 mg PO DAILY
Patient Comments:
unsure of dosage
vit no.[id number] [ One Daily] 1 EACH tablet
1 ea PO DAILY
gentamicin 0.3 % drops
1 drp ophthalmic (eye) QID Qty: 5 0RF
Referrals:
UNKNOWN - PT DOES,NOT KNOW [Family Provider] -
Activity Restrictions/Additional Instructions:
Call your LOOM INSPECTOR physician first thing tomorrow morning for close follow-up. Get rechecked in the next few days
Interventions
Interventions:
*Risk Screen - Suicide Last Done: 12/23/24 13:01
*General Assessment Last Done: 12/23/24 13:01
*Neglect/Abuse Screening Last Done: 12/23/24 13:01
ED- Fall Risk Assessment Last Done: 12/23/24 15:40
ED-Female Genitourinary Assessment Last Done: 12/23/24 15:40
Discharge Date and Time
Print Language: TURKISH
[2024-12-23 15:39] VITALS: BMI 31.6
[2024-12-23 15:57] VITALS: BP 121/82
[2024-12-23 21:04] VITALS: BP 124/71
== END 2024-12-23 21:17 | disposition home or self-care (01) ==
LOC: EMR 12:47
PROVIDERS: Student in an Organized Health Care Education/Training Program; EMERGENCY PHYSICIAN Emergency Medicine
DX: N93.9 Abnormal uterine and vaginal bleeding, unspecified (principal); D25.9 Leiomyoma of uterus, unspecified; E11.9 Type 2 diabetes mellitus without complications; Z90.49 Acquired absence of other specified parts of digestive tract; Z98.84 Bariatric surgery status
CPT/HCPCS: 99284; 76856; 80053; 84703; 85025; 86850; 86900; 86901

== ENCOUNTER 2025-07-25 20:45 | Emergency (ER) | payer OTHER, SELFPAY ==
[2025-07-25 20:46] VITALS: BP 116/74
[2025-07-25 21:39] LABS: ALT (SGPT) 14 U/L (0-35); AST (SGOT) 17 U/L (14-36); Albumin 4.4 g/dl (3.5-5.0); Alkaline Phosphatase 48 U/L (38-126); Blood Urea Nitrogen 6 mg/dl (7-17); Calcium 9.3 mg/dl (8.4-10.2); Carbon Dioxide 26 mmol/L (22-30); Chloride 106 mmol/L (98-107); Glucose 82 mg/dl (70-99); Potassium 4.1 mmol/L (3.5-5.1); Sodium 137 mmol/L (135-145); Total Protein 7.0 g/dl (6.3-8.2); eGFR > 60.00
[2025-07-25 21:45] LABS: Hematocrit 30.0 % (37.0-47.0); Hemoglobin 9.7 g/dL (12.0-16.0); Mean Corp Hgb Conc. 32.3 g/dL (33.0-37.0); Mean Corpuscular Volume 59.9 fL (81.0-99.0); Nucleated Red Blood Cells % 0 %; Platelet Count 341 10^3/uL (130-400); Red Cell Dist. Width 19.9 % (11.5-14.5)
--- NOTE | 2025-07-25 22:32 | ED.GENMED ---
History of Present Illness
<Anish Koroma PA-C - Last Filed: 07/28/25 16:09>
General
Chief Complaint: Headache
Source: patient and records
Time Seen by Provider: 07/25/25 22:24
History of Present Illness
History of Present Illness:
40-year-old female with past medical history of migraine disorder and chronic anemia presenting to the emergency department for evaluation of 3 days diffuse generalized headache, sharp throbbing sensation, typical of her usual migraines, unrelieved
with intranasal sumatriptan, takes a monthly injectable (does not recollect the name of the medication) as well as Tylenol but without any relief of symptoms. Patient endorses some nausea and vomiting today with last episode being approximately 2
hours prior to arrival. She denies any fevers, visual changes (does admit to some photophobia), neck pain or stiffness, focal weakness or numbness or any other concerns. Patient does state that this headache is similar to previous headaches that
have caused her to come to the hospital previously. She does follow with [facility] neurology department.
Past History
<Anish Koroma PA-C - Last Filed: 07/28/25 16:09>
Past History
ED Past Medical History: NIDDM, Seizures, Psychiatric and Other (Migraines)
ED Past Surgical History: Appendectomy, , Gynecological and Other (gastric bypass)
Social History
Tobacco: Non-smoker
Alcohol: None
Drug: None
Personal:
Living: with family
Employment: Employed (Home health care)
Family History
Family History: Negative Early CAD or Sudden
Review of Systems
<PIPPA Peters Last Filed: 07/28/25 16:09>
Review of Systems
All Other Systems: ROS reviewed and negative except as documented in HPI and ROS
Phy Exam
<Anish Koroma PA-C - Last Filed: 07/28/25 16:09>
Physical Exam
Physical Exam:
GENERAL: Alert , sleeping, arousable to tactile stimulation
EYE: conjunctiva clear, pupils 4 mm bilateral, EOMI
Head: Normocephalic atraumatic
NECK: Supple, no meningismus
ENT: mmm.
LUNGS: no acute respiratory distress
NEUROLOGICAL: Alert and oriented, ambulatory steady gait, no dysmetria, no ataxia
SKIN: Warm and dry, skin intact.
MUSCULOSKELETAL: well perfused.
PSYCH: Normal and appropriate interaction.
Scores
<Anish Koroma PA-C - Last Filed: 07/28/25 16:09>
Heart Failure Risk
Heart Failure Risk Score: Not Applicable
Heart Score for Chest Pain Patients
STEMI patient?: Not applicable
Withdrawal Assessment of Alcohol
Withdrawal Assessment Completed?: Not applicable
Course
<Anish Koroma PA-C - Last Filed: 07/28/25 16:09>
Orders/Labs/Results
Orders:
Orders
07/25/25 20:55
CMP [Comprehensive Metabolic Panel] Urgent
Complete Blood Count/With Diff Urgent
07/25/25 22:30
Diphenhydramine [Benadryl] 25 mg IV NOW STA
Ketorolac [Toradol] 30 mg IV NOW STA
Prochlorperazine [Compazine] 10 mg IV NOW STA
07/25/25 22:32
0.9% Sodium Chloride 1000 ml [Nss] 1,000 ml IV BOLUS
Abnormal Lab Results
07/25/25
20:55
Hgb 9.7 L g/dL
(12.0-16.0)
Hct 30.0 L %
(37.0-47.0)
MCV 59.9 L fL
(81.0-99.0)
MCH 19.4 L pg
(27.0-31.0)
MCHC 32.3 L g/dL
(33.0-37.0)
RDW 19.9 H %
(11.5-14.5)
BUN 6 L mg/dl
(7-17)
07/25/25 20:55
07/25/25 20:55
Vital Signs
Initial and Last Documented VS:
Initial Vital Signs
Temp Pulse Resp BP Pulse Ox
98.1 F 83 16 116/74 95
07/25/25 20:46 07/25/25 20:46 07/25/25 20:46 07/25/25 20:46 07/25/25 20:46
Last Documented Vital Signs
Temp Pulse Resp BP Pulse Ox
98.1 F 57 19 100/77 100
07/25/25 20:46 07/26/25 06:15 07/26/25 06:15 07/26/25 06:01 07/26/25 06:15
<Bri Quinonez, DO - Last Filed: 07/26/25 02:03>
Orders/Labs/Results
Orders:
Orders
07/25/25 20:55
CMP [Comprehensive Metabolic Panel] Urgent
Complete Blood Count/With Diff Urgent
07/25/25 22:30
Diphenhydramine [Benadryl] 25 mg IV NOW STA
Ketorolac [Toradol] 30 mg IV NOW STA
Prochlorperazine [Compazine] 10 mg IV NOW STA
07/25/25 22:32
0.9% Sodium Chloride 1000 ml [Nss] 1,000 ml IV BOLUS
Abnormal Lab Results
07/25/25
20:55
Hgb 9.7 L g/dL
(12.0-16.0)
Hct 30.0 L %
(37.0-47.0)
MCV 59.9 L fL
(81.0-99.0)
MCH 19.4 L pg
(27.0-31.0)
MCHC 32.3 L g/dL
(33.0-37.0)
RDW 19.9 H %
(11.5-14.5)
BUN 6 L mg/dl
(7-17)
07/25/25 20:55
07/25/25 20:55
Vital Signs
Initial and Last Documented VS:
Initial Vital Signs
Temp Pulse Resp BP Pulse Ox
98.1 F 83 16 116/74 95
07/25/25 20:46 07/25/25 20:46 07/25/25 20:46 07/25/25 20:46 07/25/25 20:46
Last Documented Vital Signs
Temp Pulse Resp BP Pulse Ox
98.1 F 57 19 100/77 100
07/25/25 20:46 07/26/25 06:15 07/26/25 06:15 07/26/25 06:01 07/26/25 06:15
<Anish Koroma PA-C - Last Filed: 07/28/25 16:09>
MDM/Problems Addressed
Differential Diagnosis Includes:
Tension Headache
Migraine Headache
Cluster Headache
ICH
Anemia
Viral syndrome
MDM/Problems Addressed:
40-year-old female presenting to the emergency department for evaluation of migraine headache for the last 3 days, not responding to her usual medications at home. She did notice secondary concern of possible iron deficiency anemia as she is
supposed to get every 6 month iron infusions but she has not done this and at least 10 months. Labs were initiated on arrival which does show a hemoglobin of 9.7 and a low MCV consistent with an iron deficiency anemia. Patient was advised that she
would likely need to continue following up as an outpatient for her iron infusion but she could also take daily iron supplementation. In August 2024 patient received Compazine, Benadryl and Toradol with relief of her migraine headache so we will
use these medications tonight. Disposition pending
<Anish Koroma PA-C - Last Filed: 07/28/25 16:09>
*Pulse Oximetry
SaO2: 100
Oxygen Mode of Delivery: Room air
Patient hypoxic: no
*Critical Care Note
Total Time (30-74mins, 75-104mins- exclusive of procedures): Not Applicable
Data Reviewed
Review of Other/Old Records Reveals: Labs and Records
ED Attending Note
<Anish Koroma PA-C - Last Filed: 07/28/25 16:09>
-
Portions of this chart may have been created with voice recognition software.� Occasional wrong word or��sound alike� substitutions may have occurred due to the inherent limitations of voice recognition software.
<Bri Quinonez DO - Last Filed: 07/26/25 02:03>
ED Attending Note
Patient seen and examined by attending physician: Yes
I performed the substantive portion of visit, reviewed & personally made and approve the management plan that is documented in note by myself or JOSE.: Yes
I performed a history and physical exam of patient and discussed management with resident, I reviewed resident's note and agree with documented findings and plan of care.: Yes
ED Attending Note:
40-year-old female with history of migraines presenting for migraine headache. Headache for 3 days, feels consistent with her migraines. Notes that her typical modalities are not helping. Patient has had to come to the ER in the past for migraine
relief. Denies fever. Vital signs normal
On exam, patient in no acute distress, nontoxic, no focal neurologic deficits. Most consistent with migraine headache. Patient received migraine cocktail, pending reassessment. No present indication for advanced head imaging
02:00 - On reassessment patient notes improvement of symptoms. Stable for discharge. Return precautions discussed
Discharge Plan
Departure
Patient Disposition: Home (Routine Discharge)
Date of Disposition: 07/26/25
Time of Disposition: 02:01
Patient with high blood pressure during this ER visit?: No
Discharge Problem:
Headache, migraine, Anemia
Instructions: Migraines (DC)
Prescriptions:
No Action
metformin 500 MG tablet
500 mg PO BID
Patient Comments:
unsure of dosage
glipizide [Glipizide XL] 5 MG tablet extended release 24hr
ferrous sulfate [Feosol] 325 MG tablet
325 mg PO DAILY
topiramate 100 MG tablet
100 mg PO BID
Patient Comments:
unsure of dosage
sitagliptin phosphate [Januvia] 50 MG tablet
50 mg PO DAILY
Patient Comments:
unsure of dosage
vit no.[id number] [ One Daily] 1 EACH tablet
1 ea PO DAILY
gentamicin 0.3 % drops
1 drp ophthalmic (eye) QID Qty: 5 0RF
Referrals:
PRIVATE,PHYSICIAN [Family Provider, Internal Medicine]
Activity Restrictions/Additional Instructions:
You were seen in the emergency department for headache
You are suspected to have a migraine.
Please follow-up closely with your primary care physician.
Return to the emergency department for any worsening of your symptoms, or any development of chest pain, difficulty breathing, abdominal pain with persistent vomiting and inability to tolerate food or liquid by mouth (concern for dehydration),
weakness, headache or confusion, fever greater than 100.4, or any additional symptoms that are concerning to you.
Thank you for choosing [facility].
Interventions
Interventions:
*Risk Screen - Suicide Last Done: 07/25/25 20:46
*General Assessment Last Done: 07/25/25 20:46
*Neglect/Abuse Screening Last Done: 07/25/25 20:46
*ED- Fall Risk Assessment Last Done: 07/25/25 20:46
*ED COVID-19 Vaccine History Last Done: 07/25/25 20:46
*Nursing Disposition Last Done: 07/26/25 06:20
ED- Neurological Assessment Last Done: 07/25/25 22:03
Discharge Date and Time
Discharge Date/Time: 07/26/25 06:20
Print Language: TAJIK
[2025-07-25] MEDS: NSS 1000 IV (22:48)
[2025-07-25] MEDS: BENADRYL 25 MG IV (22:51)
[2025-07-25] MEDS: TORADOL 30 MG IV (22:51)
[2025-07-25] MEDS: COMPAZINE 10 MG IV (22:51)
[2025-07-25 22:55] VITALS: BP 126/73
[2025-07-25 23:00] VITALS: BP 118/65
[2025-07-26] VITALS (7 sets, daily range): BP systolic 100–125; BP diastolic 66–77
== END 2025-07-26 06:20 | disposition home or self-care (01) ==
LOC: EMR 20:45
PROVIDERS: Emergency Medicine; EMERGENCY PHYSICIAN Student in an Organized Health Care Education/Training Program
DX: G43.909 Migraine, unspecified, not intractable, without status migrainosus (principal); E11.9 Type 2 diabetes mellitus without complications; D64.9 Anemia, unspecified; Z98.84 Bariatric surgery status
CPT/HCPCS: 96374; 96375; 96361; 99284; 80053; 85025

== ENCOUNTER 2025-08-15 18:00 | Emergency (ER) | payer OTHER, SELFPAY ==
[2025-08-15 18:16] VITALS: BP 116/73
[2025-08-15 18:40] LABS: Urine Character Cloudy (Clear)
[2025-08-15 18:43] LABS: Hematocrit 30.4 % (37.0-47.0); Hemoglobin 9.8 g/dL (12.0-16.0); Mean Corp Hgb Conc. 32.2 g/dL (33.0-37.0); Mean Corpuscular Volume 58.9 fL (81.0-99.0); Nucleated Red Blood Cells % 0 %; Platelet Count 318 10^3/uL (130-400); Red Cell Dist. Width 20.6 % (11.5-14.5)
[2025-08-15 18:46] LABS: Urine Red Blood Cell 50-60 /HPF (0-2); Urine Squamous Cell 0-2 /LPF (Few); Urine White Cell 0-2 /HPF (0-5)
[2025-08-15 18:51] LABS: HCG, Serum Qualitative Screen Negative
[2025-08-15 18:55] LABS: ALT (SGPT) 14 U/L (0-35); AST (SGOT) 16 U/L (14-36); Albumin 4.6 g/dl (3.5-5.0); Alkaline Phosphatase 47 U/L (38-126); Blood Urea Nitrogen 8 mg/dl (7-17); Calcium 9.3 mg/dl (8.4-10.2); Carbon Dioxide 25 mmol/L (22-30); Chloride 106 mmol/L (98-107); Glucose 88 mg/dl (70-99); Potassium 4.3 mmol/L (3.5-5.1); Sodium 137 mmol/L (135-145); Total Protein 7.3 g/dl (6.3-8.2); eGFR > 60.00
--- NOTE | 2025-08-15 22:02 | ED.GENMED ---
History of Present Illness
General
Chief Complaint: Vaginal Bleeding
Source: patient
Exam Limitations: none
Time Seen by Provider: 08/15/25 21:48
History of Present Illness
History of Present Illness:
40yoF with a history of seizures, type 2 diabetes, and chronic anemia presenting for evaluation of vaginal bleeding. Symptoms began 3 days ago. Her menstrual period was 6 days late and she reports possible . Her bleeding is much heavier
than usual. She has soaked through 10 pads so far today. She is also having fatigue and is complaining of dizziness. No syncope. Patient has an appointment with her electrical project engineer scheduled in 3 days to discuss iron infusions. Her last iron
infusion was about 9 months ago.
Past History
Past History
ED Past Medical History: NIDDM, Seizures, Psychiatric and Other (Migraines)
ED Past Surgical History: Appendectomy, , Gynecological and Other (gastric bypass)
Social History
Tobacco: Non-smoker
Alcohol: None
Drug: None
Personal:
Living: with family
Employment: Employed (Home health care)
Family History
Family History: Negative Early CAD or Sudden
Phy Exam
General Physical Exam
General Presentation: well appearing and no apparent distress
General Skin: warm and dry
General Habitus: normal
General Mental: alert
ENT Exam
ENT Exam: normocephalic
Pulmonary Exam
Pulmonary Exam: no respiratory distress
Gastrointestinal Exam
Gastrointestinal Exam: soft, non distended and other (+Suprapubic tenderness)
Genitourinary Exam Female
Exam Female: other (Moderate amount of vaginal bleeding on speculum exam. No clots visualized.)
Neurological Exam
Neurological Exam: alert
[place] Coma Scale
Eye Opening: Spontaneous
Verbal Response: Oriented
Motor Response: Obeys Commands
GCS Total Score: 15
Skin Exam
Skin Exam: normal color and warm/dry
Psychiatric Exam
Psychiatric Exam: normal mood/affect
Course
Orders/Labs/Results
Orders:
Orders
08/15/25 18:21
Test Result ONCE
08/15/25 18:27
Complete Blood Count/With Diff Urgent
Comprehensive Metabolic Panel Urgent
HCG, Serum Qualitative Screen Urgent
Urinalysis Reflex To Culture Urgent
Date Specimen was Collected: 08/15/25
Time Specimen was Collected: 18:23
Urine Microscopic Reflex Cult Urgent
08/15/25 19:37
US Pelvis W Transvag Combined Urgent
Reason For Exam: vaginal bleeding
Abnormal Lab Results
08/15/25
18:27
Hgb 9.8 L g/dL
(12.0-16.0)
Hct 30.4 L %
(37.0-47.0)
MCV 58.9 L fL
(81.0-99.0)
MCH 19.0 L pg
(27.0-31.0)
MCHC 32.2 L g/dL
(33.0-37.0)
RDW 20.6 H %
(11.5-14.5)
Urine Ketones 1+ A
(Negative)
Ur Occult Blood Reflex 4+ A
(Negative)
Urine Urobilinogen 3+ A
(Neg - 1+)
Urine RBC 50-60 A /HPF
(0-2)
Urine Bacteria (Reflex) Few A
(Negative)
Urine Albumin (Reflex) 2+ A
(Neg - Trace)
08/15/25 18:27
08/15/25 18:27
Vital Signs
Initial and Last Documented VS:
Initial Vital Signs
Temp Pulse Resp BP Pulse Ox
98.7 F 68 20 116/73 99
08/15/25 18:16 08/15/25 18:16 08/15/25 18:16 08/15/25 18:16 08/15/25 18:16
Last Documented Vital Signs
Temp Pulse Resp BP Pulse Ox
98.7 F 85 18 101/63 96
08/15/25 18:16 08/16/25 00:19 08/16/25 00:19 08/16/25 00:20 08/16/25 00:19
MDM/Problems Addressed
Differential Diagnosis Includes:
40yoF here with heavy vaginal bleeding x 3 days. Has gone through 10 pads today. C/o fatigue and dizziness. VSS. She is well-appearing in no distress. There is a moderate amount of vaginal bleeding noted on speculum exam without clots.
Differential diagnosis includes but is not limited to: Menorrhagia/dysfunctional uterine bleeding, uterine fibroids, miscarriage, symptomatic anemia
Initial ED plan: Workup initiated in triage. Hemoglobin is 9.8. This is stable from 9.7 on 07/25/25. HCG negative. Will check pelvic ultrasound.
*Pulse Oximetry
SaO2: 99
Oxygen Mode of Delivery: Room air
Patient hypoxic: no
*Critical Care Note
Total Time (30-74mins, 75-104mins- exclusive of procedures): Not Applicable
Update Note
Update Note:
Pelvic ultrasound shows a small uterine fibroid. Endometrium is thin and measures up to 3 mm in thickness. Vitals remained stable on reassessment. She is stable for discharge. Patient does have an appointment scheduled with her electrical project engineer in 3
days to discuss iron infusions. Will provide prescription for ferrous sulfate. She was also advised to follow-up with her licensed nuclear operator. ED return precautions reviewed. Patient in agreement with plan and was discharged in stable condition.
ED Attending Note
-
Portions of this chart may have been created with voice recognition software.� Occasional wrong word or��sound alike� substitutions may have occurred due to the inherent limitations of voice recognition software.
Discharge Plan
Departure
Patient Disposition: Home (Routine Discharge)
Date of Disposition: 08/15/25
Time of Disposition: 23:46
Patient with high blood pressure during this ER visit?: No
Discharge Problem:
Menorrhagia
Instructions: Heavy Periods (DC)
Prescriptions:
New
ferrous sulfate 325 mg (65 mg iron) tablet
325 mg PO DAILY Qty: 30 0RF
No Action
metformin 500 MG tablet
500 mg PO BID
Patient Comments:
unsure of dosage
glipizide [Glipizide XL] 5 MG tablet extended release 24hr
ferrous sulfate [Feosol] 325 MG tablet
325 mg PO DAILY
topiramate 100 MG tablet
100 mg PO BID
Patient Comments:
unsure of dosage
sitagliptin phosphate [Januvia] 50 MG tablet
50 mg PO DAILY
Patient Comments:
unsure of dosage
vit no.[id number] [ One Daily] 1 EACH tablet
1 ea PO DAILY
gentamicin 0.3 % drops
1 drp ophthalmic (eye) QID Qty: 5 0RF
Referrals:
Rl Lauren DO [Family Provider]
Activity Restrictions/Additional Instructions:
Take iron supplement as prescribed.
Please follow-up with your electrical project engineer on Monday as previously scheduled. You should also make an appointment with your licensed nuclear operator next week.
Return to the ER with any worsening symptoms including passing out or if you bleed through >2 pads/hour for >2 hours.
Interventions
Interventions:
*Risk Screen - Suicide Last Done: 08/15/25 18:16
*General Assessment Last Done: 08/15/25 22:10
*Neglect/Abuse Screening Last Done: 08/15/25 18:16
*ED- Fall Risk Assessment Last Done: 08/15/25 22:10
*ED COVID-19 Vaccine History Last Done: 08/15/25 22:10
*Nursing Disposition Last Done: 08/16/25 00:25
ED-Female Genitourinary Assessment Last Done: 08/15/25 22:10
Discharge Date and Time
Discharge Date/Time: 08/16/25 00:37
Print Language: [email or web address]
[2025-08-15 22:16] VITALS: BMI 28.8
[2025-08-15 22:19] VITALS: BP 116/84
[2025-08-16 00:20] VITALS: BP 101/63
== END 2025-08-16 00:37 | disposition home or self-care (01) ==
LOC: EMR 18:00
PROVIDERS: Emergency Medicine; EMERGENCY PHYSICIAN Emergency Medicine; FAMILY PHYSICIAN Student in an Organized Health Care Education/Training Program
DX: N92.0 Excessive and frequent menstruation with regular cycle (principal); D25.1 Intramural leiomyoma of uterus; E11.9 Type 2 diabetes mellitus without complications; Z90.49 Acquired absence of other specified parts of digestive tract; Z98.84 Bariatric surgery status
CPT/HCPCS: 99284; 76830; 76856; 80053; 81003; 81015; 84703; 85025

== ENCOUNTER 2025-08-19 01:12 | Emergency (ER) | payer OTHER, SELFPAY ==
[2025-08-19] VITALS (7 sets, daily range): BP systolic 101–144; BP diastolic 65–86; BMI 28.0
--- NOTE | 2025-08-19 01:55 | ED.GENMED ---
History of Present Illness
General
Chief Complaint: Weakness
Source: significant other (boyfriend)
Time Seen by Provider: 08/19/25 01:41
History of Present Illness
History of Present Illness:
40-year-old female brought to the emergency room by ambulance due to lethargy. Patient is evidently too weak to get out of bed. She has been feeling this way for some time getting progressively worse. Her boyfriend is at the bedside and providing
all the history as she states she is too weak to talk. Boyfriend is not sure of all the patient's medications but does believe she takes clonidine, Xanax, Ozempic. She seems particularly sleepy at night. Patient does indicate she has pain all
over.
Past History
Past History
ED Past Medical History: NIDDM, Seizures, Psychiatric and Other (Migraines)
ED Past Surgical History: Appendectomy, , Gynecological and Other (gastric bypass)
Social History
Tobacco: Non-smoker
Alcohol: None
Drug: None
Personal:
Living: with family
Employment: Employed (Home health care)
Family History
Family History: Negative Early CAD or Sudden
Phy Exam
Physical Exam
Physical Exam:
General: Awake, Alert, Oriented X3. Answers questions in a barely audible whisper and in one-word answers.
Vitals: unremarkable
Head: Atraumatic
Eyes: Pupils equal, EOMI
Throat: Airway intact, no exudates, dry mucosa
Neck: Trachea midline
Lungs: Clear and equal b/l
Heart: Regular rate, no murmurs
Abd: Soft, mildly tender diffusely, No pulsatile mass
Neuro: Nonfocal
Skin: Warm, dry, no rash
Extremities: pulses equal b/l, no edema
Course
Orders/Labs/Results
Orders:
Orders
08/19/25 01:44
Complete Blood Count/With Diff Urgent
Comprehensive Metabolic Panel Urgent
08/19/25 01:52
0.9% Sodium Chloride 1000 ml [Nss] 1,000 ml IV BOLUS
Test Result ONCE
08/19/25 01:58
Add On- LAB Urgent
Tests Added?: tsh w reflex t4
08/19/25 02:09
Acetaminophen Urgent
Alcohol Urgent
HCG, Serum Qualitative Screen Urgent
Salicylate Urgent
TSH Reflex To Free T4 Urgent
Comment: ADD ON
Venous Blood Gas Urgent
%Oxygen/Room Air: ra
08/19/25 04:42
Urine Drug Abuse Screen Urgent
Date Specimen was Collected: 08/19/25
Time Specimen was Collected: 04:31
Abnormal Lab Results
08/19/25 08/19/25
01:44 02:09
Hgb 9.6 L g/dL
(12.0-16.0)
Hct 29.4 L %
(37.0-47.0)
MCV 57.9 L fL
(81.0-99.0)
MCH 18.9 L pg
(27.0-31.0)
MCHC 32.7 L g/dL
(33.0-37.0)
RDW 20.1 H %
(11.5-14.5)
VBG pO2 62 H mmHg
(30-50)
BUN 5 L mg/dl
(7-17)
Salicylates < 1.0 L mg/dl
(2.0-20.0)
Acetaminophen < 10 L ug/ml
(10-30)
08/19/25 01:44
08/19/25 01:44
Vital Signs
Initial and Last Documented VS:
Initial Vital Signs
Temp Pulse Resp BP Pulse Ox
98.0 F 63 14 144/86 100
08/19/25 01:16 08/19/25 01:16 08/19/25 01:16 08/19/25 01:16 08/19/25 01:16
Last Documented Vital Signs
Temp Pulse Resp BP Pulse Ox
98.0 F 75 28 108/65 100
08/19/25 01:16 08/19/25 04:00 08/19/25 04:00 08/19/25 04:00 08/19/25 04:00
MDM/Problems Addressed
Differential Diagnosis Includes:
Oversedation from medications, electrolyte abnormality, hypothyroidism
MDM/Problems Addressed:
Patient's mental status improved while here. Labs are unremarkable. Ultimately she was able to get up and walk to the bathroom and provided urine specimen. There is no evidence for an unstable process. Patient stable for discharge and outpatient
follow-up
*Pulse Oximetry
SaO2: 100
Oxygen Mode of Delivery: Room air
Patient hypoxic: no
*Critical Care Note
Total Time (30-74mins, 75-104mins- exclusive of procedures): Not Applicable
ED Attending Note
-
Portions of this chart may have been created with voice recognition software.� Occasional wrong word or��sound alike� substitutions may have occurred due to the inherent limitations of voice recognition software.
Discharge Plan
Departure
Patient Disposition: Home (Routine Discharge)
Date of Disposition: 08/19/25
Time of Disposition: 04:30
Patient with high blood pressure during this ER visit?: No
Condition: Good
Discharge Problem:
Weakness generalized
Instructions: Generalized Weakness (DC)
Prescriptions:
No Action
metformin 500 MG tablet
500 mg PO BID
Patient Comments:
unsure of dosage
glipizide [Glipizide XL] 5 MG tablet extended release 24hr
ferrous sulfate [Feosol] 325 MG tablet
325 mg PO DAILY
topiramate 100 MG tablet
100 mg PO BID
Patient Comments:
unsure of dosage
sitagliptin phosphate [Januvia] 50 MG tablet
50 mg PO DAILY
Patient Comments:
unsure of dosage
vit [id number] [ One Daily] 1 EACH tablet
1 ea PO DAILY
gentamicin 0.3 % drops
1 drp ophthalmic (eye) QID Qty: 5 0RF
ferrous sulfate 325 mg (65 mg iron) tablet
325 mg PO DAILY Qty: 30 0RF
Referrals:
Rl Lauren DO [Family Provider]
Interventions
Interventions:
*Risk Screen - Suicide Last Done: 08/19/25 01:16
*General Assessment Last Done: 08/19/25 01:34
*Neglect/Abuse Screening Last Done: 08/19/25 01:34
*ED- Fall Risk Assessment Last Done: 08/19/25 01:34
*ED COVID-19 Vaccine History Last Done: 08/19/25 01:34
*ED Influenza Vaccine History Last Done: 08/19/25 01:34
*Nursing Disposition Last Done: 08/19/25 05:20
ED- Cardiac Assessment Last Done: 08/19/25 01:34
ED- Neurological Assessment Last Done: 08/19/25 01:34
ED- Pulmonary Assessment Last Done: 08/19/25 01:34
Discharge Date and Time
Discharge Date/Time: 08/19/25 05:20
Print Language: GREEK
[2025-08-19 01:59] LABS: Hematocrit 29.4 % (37.0-47.0); Hemoglobin 9.6 g/dL (12.0-16.0); Mean Corp Hgb Conc. 32.7 g/dL (33.0-37.0); Mean Corpuscular Volume 57.9 fL (81.0-99.0); Nucleated Red Blood Cells % 0 %; Platelet Count 316 10^3/uL (130-400); Red Cell Dist. Width 20.1 % (11.5-14.5)
[2025-08-19 02:17] LABS: ALT (SGPT) 12 U/L (0-35); AST (SGOT) 16 U/L (14-36); Albumin 4.2 g/dl (3.5-5.0); Alkaline Phosphatase 44 U/L (38-126); Blood Urea Nitrogen 5 mg/dl (7-17); Calcium 9.5 mg/dl (8.4-10.2); Carbon Dioxide 23 mmol/L (22-30); Chloride 107 mmol/L (98-107); Estimated Creatinine Clearance 100 ml/min; Glucose 78 mg/dl (70-99); Potassium 3.9 mmol/L (3.5-5.1); Sodium 137 mmol/L (135-145); Total Protein 6.7 g/dl (6.3-8.2); eGFR > 60.00
[2025-08-19] MEDS: NSS 1000 IV (02:18)
[2025-08-19 02:32] LABS: Venous Blood Gas B.E. -0.9 mmol/L (-4 to +4); Venous Blood Gas O2 Sat % 93.9 %
[2025-08-19 02:48] LABS: HCG, Serum Qualitative Screen Negative
[2025-08-19 02:49] LABS: Acetaminophen < 10 ug/ml (10-30); Salicylate < 1.0 mg/dl (2.0-20.0)
--- NOTE | 2025-08-19 04:31 | EDRN ---
pt successfully ambulated with steady gait to bathroom and returned to bed without complication. Dr. Parmar informed and aware of status
== END 2025-08-19 05:20 | disposition home or self-care (01) ==
LOC: EMR 01:12
PROVIDERS: EMERGENCY PHYSICIAN Emergency Medicine; FAMILY PHYSICIAN Student in an Organized Health Care Education/Training Program
DX: R53.1 Weakness (principal); E11.9 Type 2 diabetes mellitus without complications; Z79.84 Long term (current) use of oral hypoglycemic drugs; Z98.84 Bariatric surgery status
CPT/HCPCS: 99284; 96360; 80053; 80143; 80179; 80306; 82077; 82805; 84443; 84703; 85025